=== PATIENT | female | born 1940 | race Caucasian/White ===

== ENCOUNTER 2016-12-26 09:11 | Emergency (ER) | payer MEDICARE, BC, OTHER ==
[2016-12-26] MEDS ORDERED: Fentanyl 100 MCG/2 ML VIAL ONE (09:17)
[2016-12-26 09:46] LABS: ALT (SGPT) 40 U/L (8-55); AST (SGOT) 71 U/L (5-34); Alkaline Phosphatase 75 U/L (40-150); Anion Gap 15 mmol/L (10-20); BUN (Urea Nitrogen) 23 mg/dL (9.8-20.1); Bilirubin, Total 0.5 mg/dL (0.2-1.2); Calc. Creatinine Clearance 0 mL/min (70-130); Calcium 10.3 mg/dL (7.8-10.44); Carbon Dioxide 20 mmol/L (23-31); Chloride 106 mmol/L (98-107); Estimated GFR-MDRD 46; Globulin 2.8 g/dL (2.4-3.5); Lipase 136 U/L (8-78); Protein, Total 6.5 g/dL (6.0-8.3)
[2016-12-26] MEDS ORDERED: Ondansetron HCl/PF 4 MG/2 ML Vial ONE ×2 (09:48→10:15)
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
[2016-12-26 10:01] LABS: Band 7 % (5-11); Hematocrit 46.5 % (36.0-47.0); Mean Platelet Volume 8.4 fL (7.4-10.4); Neutrophil 72 % (42-75); Red Blood Cell (RBC) Count 4.53 mill/uL (4.20-5.40); White Blood Cell (WBC) Count 20.2 thou/uL (4.8-10.8)
[2016-12-26] MEDS ORDERED: Erythromycin Base 0.5% Oint 1 GM TUBE ONE (10:05)
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
--- NOTE | 2016-12-26 10:55 | RAD ---
RIGHT WRIST SINGLE VIEW: Date: 12/26/16 INDICATION: Post-traumatic pain. FINDINGS: There are displaced fractures of the proximal radius and ulna. Proximal radial fracture is interarti cular and comminuted. Evaluation limited on this single provided frontal view. IMPRESSION: Proximal radial and ulnar fractures. There is overlying soft tissue prominence. POS: [facility]
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
[2016-12-26] MEDS ORDERED: ISOVUE-370 76%-LOCM 1 ML ONE (13:40)
== END 2016-12-26 10:40 | disposition short-term general hospital (02) ==
LOC: ERS 09:11
DX: S52.602A Unspecified fracture of lower end of left ulna, initial encounter for closed fracture (principal); S05.31XA Ocular laceration without prolapse or loss of intraocular tissue, right eye, initial encounter; S72.142A Displaced intertrochanteric fracture of left femur, initial encounter for closed fracture; S22.41XA Multiple fractures of ribs, right side, initial encounter for closed fracture; S22.20XA Unspecified fracture of sternum, initial encounter for closed fracture; S27.329A Contusion of lung, unspecified, initial encounter; S60.221A Contusion of right hand, initial encounter; S50.312A Abrasion of left elbow, initial encounter; I10 Essential (primary) hypertension; E03.9 Hypothyroidism, unspecified; V49.49XA Driver injured in collision with other motor vehicles in traffic accident, initial encounter; Y92.411 Interstate highway as the place of occurrence of the external cause
CPT/HCPCS: 36430; 51702; 70450; 70486; 71010; 71260; 72125; 72170; 73070; 73100; 73110; 73130; 73501; 74177; 80053; 83690; 85025; 86850; 86900; 86901; 86920; 96374; 96375; 96376; 99291; P9016; P9048; G0390; J2405; J3010